=== PATIENT | male | born 1965 | race Caucasian/White ===

== ENCOUNTER 2018-11-13 03:02 | Emergency (ER) | payer MEDICARE ==
[2018-11-13] MEDS ORDERED: Ketorolac 60 MG/2 ML SDV IM ONE (03:38)
--- NOTE | 2018-11-13 03:43 | EDM.PDOC ---
ED HPI GENERAL MEDICAL PROBLEM - General Chief Complaint: ENT Problem Stated Complaint: PAIN IN RT EAR Time Seen by Provider: 11/13/18 03:31 - History of Present Illness INITIAL COMMENTS - FREE TEXT/NARRATIVE: HISTORY AND PHYSICAL: History of present illness: The patient is a 53-year-old male who states that he has had on and off issues with his left ear including a slightly decreased auditory acuity is not new and intermittent feeling like there is a swishing noise and wax buildup. He says that several hours ago he noticed more pain in the area and there seems to be a crunching noise when he moves his jaw but he has not had any drainage. He has not had any direct trauma to the area and is only placed his finger in the ear canal. He says that he has a tooth on the left upper side that needs some work and he is not sure if that's contributing. He has no systemic complaints of fever chills nausea vomiting loss of balance chest pain or shortness of breath Review of systems: As per history of present illness and below otherwise all systems reviewed and negative. Past medical history: As per history of present illness and as reviewed below otherwise noncontributory. Surgical history: As per history of present illness and as reviewed below otherwise noncontributory. Social history: No reported history of drug or alcohol abuse. Family history: As per history of present illness and as reviewed below otherwise noncontributory. Physical exam: HEENT: Atraumatic, normocephalic, pupils reactive, negative for conjunctival pallor or scleral icterus, mucous membranes moist, throat clear, neck supple, nontender, trachea midline. There is no cervical adenopathy or nuchal rigidity and no mastoid tenderness or redness. In the mouth there is a tooth at the left upper jaw that has a silver cap on it but there is no gross fluctuance or gum swelling in the region but there is some tenderness with tapping of the tooth. The TM on the right is slightly dulled with a slightly diminished light reflex but the external canal has some areas of wax but no swelling or drainage. The left external canal is within normal limits with some scattered wax and the TM is very reddened and bulging and there is an area at 9 to 10 o'clock position that looks as if there was a perforation with some scarring. There is no mastoid tenderness. Lungs: Clear to auscultation, breath sounds equal bilaterally, chest nontender. Heart: S1S2, regular rate and rhythm no overt murmurs Abdomen: Soft, nondistended, nontender. NABS Pelvis: Deferred Genitourinary: Deferred. Rectal: Deferred. Extremities: Atraumatic, full range of motion. Neurovascular unremarkable. Neuro: Awake, alert, oriented. Cranial nerves II through XII unremarkable. Cerebellum unremarkable. Motor and sensory unremarkable throughout. Exam nonfocal. Diagnostics: [] Therapeutics: Toradol IM The patient that he would probably need be seen by his provider in the clinic and get referral to ENT as we do not have anybody here currently on staff. His situation seems to be more acute on subacute and he may need audiology testing going forward. Explained to him that we can treat the acute problem with some pain management as well as antibiotics and reevaluate in the clinic. Impression: Left otalgia/otitis media with probable perforation small Definitive disposition and diagnosis as appropriate pending reevaluation and review of above. left ear Pain Score (Numeric/FACES): 8 - Related Data Allergies Allergy/AdvReac Type Severity Reaction Status Date / Time No Known Allergies Allergy Verified 11/13/18 03:15 Home Meds: Home Meds . [No Known Home Meds] 11/13/18 [History] Past Medical History Endocrine/Metabolic History: Reports: Obesity/BMI 30+ - Past Surgical History HEENT Surgical History: Reports: Myringotomy w Tube(s), Tonsillectomy Social & Family History - Family History Family Medical History: Noncontributory - Tobacco Use Smoking Status *Q: Never Smoker - Recreational Drug Use Recreational Drug Use: No ED ROS GENERAL - Review of Systems Review Of Systems: ROS reveals no pertinent complaints other than HPI. ED EXAM, GENERAL - Physical Exam Exam: See Below (See dictation) Course - Vital Signs Last Recorded V/S: Last Vital Signs Temp 36.1 C 11/13/18 03:05 Pulse 84 11/13/18 03:05 Resp 18 11/13/18 03:05 BP 159/93 H 11/13/18 03:05 Pulse Ox 97 11/13/18 03:05 - Orders/Labs/Meds Orders: Active Orders 24 hr Category Date Time Status Ketorolac [Toradol] Med 11/13/18 03:38 Once 60 mg IM ONETIME ONE Departure - Departure Time of Disposition: 03:42 Disposition: Home, Self-Care 01 Condition: Good Clinical Impression: Otalgia of left ear Otitis media Qualifiers: Otitis media type: unspecified Chronicity: subacute Qualified Code(s): H66.90 - Otitis media, unspecified, unspecified ear - Discharge Information Referrals: PCP,None [Primary Care Provider] - Additional Instructions: The following information is given to patients seen in the emergency department who are being discharged to home. This information is to outline your options for follow-up care. We provide all patients seen in our emergency department with a follow-up referral. The need for follow-up, as well as the timing and circumstances, are variable depending upon the specifics of your emergency department visit. If you don't have a primary care physician on staff, we will provide you with a referral. We always advise you to contact your personal physician following an emergency department visit to inform them of the circumstance of the visit and for follow-up with them and/or the need for any referrals to a consulting specialist. The emergency department will also refer you to a specialist when appropriate. This referral assures that you have the opportunity for followup care with a specialist. All of these measure are taken in an effort to provide you with optimal care, which includes your followup. Under all circumstances we always encourage you to contact your private physician who remains a resource for coordinating your care. When calling for followup care, please make the office aware that this follow-up is from your recent emergency room visit. If for any reason you are refused follow-up, please contact the [facility] emergency department at and ask to speak to the emergency department charge nurse. [facility] Primary care- Internal Medicine and Family [address] [address] Please call on Wednesday morning to connect with one of our primary care physicians in the clinic for reevaluation and further care or contact your provider. Please use antibiotics and all medications as given to you from [facility]. You may also add [id number] ibuprofen/Aleve for pain management. Place nothing in the ear and to you're followed up in the clinic and have him finish the treatment prescribed to today. Return to ER as needed and as discussed - My Orders Last 24 Hours: My Active Orders 11/13/18 03:38 Ketorolac [Toradol] 60 mg IM ONETIME ONE - Assessment/Plan Last 24 Hours: My Active Orders 11/13/18 03:38 Ketorolac [Toradol] 60 mg IM ONETIME ONE
== END 2018-11-13 04:00 | disposition home or self-care (01) ==
LOC: MW.ED 03:02
DX: H66.92 Otitis media, unspecified, left ear (principal)
CPT/HCPCS: 96372; 99283; J1885

== ENCOUNTER 2018-12-23 03:30 | Emergency (ER) | payer MEDICARE ==
--- NOTE | 2018-12-23 04:07 | EDM.PDOC ---
ED HPI GENERAL MEDICAL PROBLEM - General Chief Complaint: General Stated Complaint: LEFT EAR PAIN, ABDOMINAL PAIN, ABCESSED TOOTH Time Seen by Provider: 12/23/18 03:50 - History of Present Illness INITIAL COMMENTS - FREE TEXT/NARRATIVE: HISTORY AND PHYSICAL: History of present illness: Patient's 53-year-old white male sensory concern of left ear pain and dental pain no fever chills nausea vomiting or other complaints. Review of systems: As per history of present illness and below otherwise all systems reviewed and negative. Past medical history: As per history of present illness and as reviewed below otherwise noncontributory. Surgical history: As per history of present illness and as reviewed below otherwise noncontributory. Social history: No reported history of drug or alcohol abuse. Family history: As per history of present illness and as reviewed below otherwise noncontributory. Physical exam: HEENT: Atraumatic, normocephalic, pupils reactive, negative for conjunctival pallor or scleral icterus, mucous membranes moist, throat clear, neck supple, nontender, trachea midline. Generally poor dentition multiple dental caries noted TMs normal bilaterally Lungs: Clear to auscultation, breath sounds equal bilaterally, chest nontender. Heart: S1S2, regular, negative for clicks, rubs, or JVD. Abdomen: Soft, nondistended, nontender. Negative for masses or hepatosplenomegaly. Negative for costovertebral tenderness. Pelvis: Stable nontender. Genitourinary: Deferred. Rectal: Deferred. Extremities: Atraumatic, negative for cords or calf pain. Neurovascular unremarkable. Neuro: Awake, alert, oriented. Cranial nerves II through XII unremarkable. Cerebellum unremarkable. Motor and sensory unremarkable throughout. Exam nonfocal. Diagnostics: None Therapeutics: None Impression: #1 dentalgia #2 otalgia #3 rule out dental abscess Definitive disposition and diagnosis as appropriate pending reevaluation and review of above. - Related Data Allergies Allergy/AdvReac Type Severity Reaction Status Date / Time No Known Allergies Allergy Verified 12/23/18 03:46 Home Meds: Home Meds . [No Known Home Meds] 11/13/18 [History] Past Medical History HEENT History: Reports: None Cardiovascular History: Reports: None Respiratory History: Reports: None Gastrointestinal History: Reports: None Genitourinary History: Reports: None Musculoskeletal History: Reports: None Neurological History: Reports: None Psychiatric History: Reports: None Endocrine/Metabolic History: Reports: Obesity/BMI 30+ Hematologic History: Reports: None Immunologic History: Reports: None Oncologic (Cancer) History: Reports: None Dermatologic History: Reports: None - Past Surgical History Head Surgeries/Procedures: Reports: None HEENT Surgical History: Reports: Myringotomy w Tube(s), Tonsillectomy Cardiovascular Surgical History: Reports: None Respiratory Surgical History: Reports: None GI Surgical History: Reports: None Male Surgical History: Reports: None Endocrine Surgical History: Reports: None Neurological Surgical History: Reports: None Musculoskeletal Surgical History: Reports: None Oncologic Surgical History: Reports: None Dermatological Surgical History: Reports: None Social & Family History - Family History Family Medical History: Noncontributory - Tobacco Use Smoking Status *Q: Former Smoker Used Tobacco, but Quit: Yes Month/Year Tobacco Last Used: 2 years Second Hand Smoke Exposure: No - Caffeine Use Caffeine Use: Reports: None - Recreational Drug Use Recreational Drug Use: Yes Recreational Drug Type: Reports: Marijuana/Hashish Recreational Drug Use Frequency: Rarely ED ROS GENERAL - Review of Systems Review Of Systems: ROS reveals no pertinent complaints other than HPI. ED EXAM, GENERAL - Physical Exam Exam: See Below (See dictation) Course - Vital Signs Last Recorded V/S: Last Vital Signs Temp 35.4 C 12/23/18 03:43 Pulse 72 12/23/18 03:43 Resp 18 12/23/18 03:43 BP 150/86 H 12/23/18 03:43 Pulse Ox 95 12/23/18 03:43 Departure - Departure Time of Disposition: 04:06 Disposition: Home, Self-Care 01 Condition: Good Clinical Impression: Dentalgia, Otalgia - Discharge Information Referrals: PCP,None [Primary Care Provider] - Additional Instructions: The following information is given to patients seen in the emergency department who are being discharged to home. This information is to outline your options for follow-up care. We provide all patients seen in our emergency department with a follow-up referral. The need for follow-up, as well as the timing and circumstances, are variable depending upon the specifics of your emergency department visit. If you don't have a primary care physician on staff, we will provide you with a referral. We always advise you to contact your personal physician following an emergency department visit to inform them of the circumstance of the visit and for follow-up with them and/or the need for any referrals to a consulting specialist. The emergency department will also refer you to a specialist when appropriate. This referral assures that you have the opportunity for followup care with a specialist. All of these measure are taken in an effort to provide you with optimal care, which includes your followup. Under all circumstances we always encourage you to contact your private physician who remains a resource for coordinating your care. When calling for followup care, please make the office aware that this follow-up is from your recent emergency room visit. If for any reason you are refused follow-up, please contact the [facility] emergency department at and asked to speak to the emergency department charge nurse. Augmentin as prescribed follow-up dentist as discussed return as needed as discussed Motrin/Tylenol as directed
== END 2018-12-23 04:15 | disposition home or self-care (01) ==
LOC: MW.ED 03:30
DX: K08.89 Other specified disorders of teeth and supporting structures (principal); H92.02 Otalgia, left ear; Z87.891 Personal history of nicotine dependence
CPT/HCPCS: 99282; 99283

== ENCOUNTER 2020-11-17 09:33 | Emergency (ER) | payer MEDICARE, MEDICAID ==
--- NOTE | 2020-11-17 10:07 | EDM.PDOC ---
ED HPI GENERAL MEDICAL PROBLEM - General Chief Complaint: General Stated Complaint: TICK REMOVAL Time Seen by Provider: 11/17/20 09:38 - History of Present Illness INITIAL COMMENTS - FREE TEXT/NARRATIVE: CHIEF COMPLAINT(S): Tick bite HISTORY OF PRESENT ILLNESS: This is a 55-year-old man and without any significant past medical history who comes to the emergency department with a chief complaint of tick bite. The patient [place]. He states that he was mowing the grass until dark last night. He states that when he got home he noticed that there was a tick in his right armpit. He denies any pain, redness, swelling, fever, chills, or body aches. He denies any other issues REVIEW OF SYSTEMS: Constitutional: Denies fever, chills. Eyes: Denies eye pain Ears, Nose, Mouth, & Throat: Denies earache Cardiovascular: Denies chest pain Respiratory: Denies shortness of breath Gastrointestinal: Denies Nausea, vomiting, diarrhea, hematochezia. Genitourinary: Denies hematuria Skin: Positive for tick bite to right armpit. Denies a rash MSK: Denies joint pain Neurological: Denies blurred vision Psychiatric: Denies depression PAST MEDICAL HISTORY: As per history of present illness and as reviewed below otherwise noncontributory. SURGICAL HISTORY: As per history of present illness and as reviewed below otherwise noncontributory. SOCIAL HISTORY: As per history of present illness and as reviewed below otherwise noncontributory. FAMILY HISTORY: As per history of present illness and as reviewed below otherwise noncontributory. EXAMINATION OF ORGAN SYSTEMS/BODY AREAS: Constitutional: Blood pressure is 140/78, heart rate 80, respirate 17 with an oxygen saturation 97% on room air. Temperature 35.72 poorly General: Overall well-appearing man who is in no acute distress Psychiatric: Appropriate mood and affect. Eyes: No scleral icterus or conjunctival erythema ENMT: Moist mucous membranes. No pharyngeal erythema Cardiovascular: Regular, rate, and rhythm. No gallops, murmurs, or rubs. Respiratory: Lungs clear to auscultation bilaterally. No wheezes, rales, or rhonchi. Gastrointestinal: Soft, non-tender, non-distended. Normoactive bowel sounds Genitourinary: Deferred Musculoskeletal: Normal range of motion. Skin: There is a deer tick that is attached to the right armpit area and is not burrowed. There is no surrounding rash or erythema. Neurological: Alert, GCS 15 strength and sensation grossly intact in upper and lower extremities bilaterally MEDICAL DECISION MAKING AND COURSE IN THE ED WITH INTERPRETATION/REVIEW OF DIAGNOSTIC STUDIES: This is a 35-year-old and without any significant past medical history who comes to the emergency department with tick that is attached to his right armpit without any rash that attached approximately 12 to 24 hours ago. At this time there is no indication for any prophylactic antibiotics as we are not an endemic area and the tick was not attached for greater than 36 hours. We will remove the tick. Tick Removal Procedure Note Indication: Tick bite Consent: Verbally obtained Procedure: The area around the tick located at right armpit was cleaned with alcohol. Using fine tip tweezers the tick was grasped as close to the mouth as possible. The tick was then pulled perpendicular to skin and tick was removed. There was no evidence of retained parts. The area was then cleaned with chlo rprep. After removal I did provide the patient with strict return precautions. It was at this time that he stated that he had some bloody urine that would happened approximately couple months ago. He looked it up on the Internet and he was concerned about urinary cancer, bladder cancer, prostate cancer. I did asked the patient if he had seen a primary care physician. He states that he had not and he was drinking fluids and taking cranberry daily. He states that his urine has cleaned up. He does not have any pain at all whatsoever. He states that he has not had a colonoscopy. I did discuss with him at this time that given his vitals are normal I do recommend that he follows up with a primary care physician to get referrals and to do screening maintenance. He was amenable discharge at this time and had no further questions DISPOSITION: The patient was discharged home in stable condition. The patient will follow up with primary care physician in 3 to 5 days CONDITION: Fair PROCEDURES: Tick Removal FINAL IMPRESSION(S)/DIAGNOSES: 1. Acute tick bite Darshan Ferrera M.D. - Related Data Allergies Allergy/AdvReac Type Severity Reaction Status Date / Time No Known Allergies Allergy Verified 11/17/20 09:48 Home Meds: Home Meds . [No Known Home Meds] 11/13/18 [History] Past Medical History HEENT History: Reports: None Cardiovascular History: Reports: None Respiratory History: Reports: None Gastrointestinal History: Reports: None Genitourinary History: Reports: None Musculoskeletal History: Reports: None Neurological History: Reports: None Psychiatric History: Reports: None Endocrine/Metabolic History: Reports: Obesity/BMI 30+ Hematologic History: Reports: None Immunologic History: Reports: None Oncologic (Cancer) History: Reports: None Dermatologic History: Reports: None - Past Surgical History Head Surgeries/Procedures: Reports: None HEENT Surgical History: Reports: Myringotomy w Tube(s), Tonsillectomy Cardiovascular Surgical History: Reports: None Respiratory Surgical History: Reports: None GI Surgical History: Reports: None Male Surgical History: Reports: None Endocrine Surgical History: Reports: None Neurological Surgical History: Reports: None Musculoskeletal Surgical History: Reports: None Oncologic Surgical History: Reports: None Dermatological Surgical History: Reports: None Social & Family History - Family History Family Medical History: No Pertinent Family History - Tobacco Use Tobacco Use Status *Q: Never Tobacco User Second Hand Smoke Exposure: No - Caffeine Use Caffeine Use: Reports: Coffee - Recreational Drug Use Recreational Drug Use: No ED ROS GENERAL - Review of Systems Review Of Systems: See Below ED EXAM, GENERAL - Physical Exam Exam: See Below Course - Vital Signs Last Recorded V/S: Last Vital Signs Temp 35.7 C L 11/17/20 09:38 Pulse 80 11/17/20 09:38 Resp 17 11/17/20 09:38 BP 140/78 11/17/20 09:38 Pulse Ox 97 11/17/20 09:38 Departure - Departure Time of Disposition: 10:06 Disposition: Home, Self-Care 01 Condition: Fair Clinical Impression: Tick bite Qualifiers: Encounter type: initial encounter Qualified Code(s): W57.XXXA - Bitten or stung by nonvenomous insect and other nonvenomous arthropods, initial encounter - Discharge Information *PRESCRIPTION DRUG MONITORING PROGRAM REVIEWED*: No *COPY OF PRESCRIPTION DRUG MONITORING REPORT IN PATIENT CAPRICE: No Instructions: Tick Bite Information, Adult, [id number] Referrals: PCP,None [Primary Care Provider] - Forms: ED Department Discharge Additional Instructions: You were evaluated today on an emergent basis. We were able to remove the entire tick. At this time prophylactic antibiotics not recommended. You need to watch for symptoms such as a rash which looks like a target, fever. If you have any of the symptoms please return to the emergency department. In regards to you not having your colonoscopy in your age being 55 and your history of some hematuria in the past I do recommend that you follow-up with your primary care doctor so that she can be referred for screening examination. Please make an appointment within 1 week. [facility] - Primary Care [address] [place] [id number] [facility] [address] [place] [id number] The patient is informed of any results of their evaluation and diagnostic workup and all questions are answered. They are given discharge instructions and return precautions. The patient is stable for discharge. The patient states they understand and agree with the plan and that they will return if their symptoms get worse or if they have any new concerns. The following information is given to patients seen in the emergency department who are being discharged to home. This information is to outline your options for follow-up care. We provide all patients seen in our emergency department with a follow-up referral. The need for follow-up, as well as the timing and circumstances, are variable depending upon the specifics of your emergency department visit. If you don't have a primary care physician on staff, we will provide you with a referral. We always advise you to contact your personal physician following an emergency department visit to inform them of the circumstance of the visit and for follow-up with them and/or the need for any referrals to a consulting specialist. The emergency department will also refer you to a specialist when appropriate. This referral assures that you have the opportunity for follow-up care with a specialist. All of these measure are taken in an effort to provide you with opti mal care, which includes your follow-up. Under all circumstances we always encourage you to contact your private physician who remains a resource for coordinating your care. When calling for follow-up care, please make the office aware that this follow-up is from your recent emergency room visit. If for any reason you are refused follow-up, please contact the [facility] Emergency Department at and asked to speak to the emergency department charge nurse. Sepsis Event Note (ED) - Evaluation Sepsis Screening Result: No Definite Risk - Focused Exam Vital Signs: Vital Signs Temp Pulse Resp BP Pulse Ox 11/17/20 09:38 35.7 C L 80 17 140/78 97
== END 2020-11-17 10:15 | disposition home or self-care (01) ==
LOC: MW.ED 09:33
DX: S40.861A Insect bite (nonvenomous) of right upper arm, initial encounter (principal); E66.9 Obesity, unspecified; Z68.35 Body mass index [BMI] 35.0-35.9, adult; W57.XXXA Bitten or stung by nonvenomous insect and other nonvenomous arthropods, initial encounter
CPT/HCPCS: 10120; 99282